=== PATIENT | female | born 1985 | race Two or more races ===

== ENCOUNTER 2016-11-10 10:16 | Emergency (ER) | payer OTHER ==
[~2016-11-10] VITALS: Ht 160 cm; Wt 81.6 kg
--- NOTE | ~2016-11-10 | CR72 ---
[facility] A Service of [facility] RADIOLOGY TEXT RESULTS PATIENT: ARLIN SOLANO LOCATION: SED : 87 UNIT #: [id number] AGE: [address]: Irvin Caraballo MD SEX: F ORDER DR: [id number] [address] [address] [id number] MR#: [id number] Acc #: [id number] NAME: ARLIN SOLANO : 1985 SEX: F STUDY DATE/TIME: 11/10/2016 11:46 UNIT: SED ROOM: STUDY DESCRIPTION: CR Chest Single View Portable Attending Physician: Irvin Caraballo M.D. Ordering Physician: Irvin Caraballo M.D. Primary Care Physician: No Primary Care Physician MEDICAL IMAGING REPORT This report is preliminary unless electronic signature is present. EXAM Portable chest HISTORY Chest pain since 11/08/2016 COMPARISON 03/29/2016 FINDINGS A portable view of the chest was obtained. The heart size and vascularity are normal and the lungs are clear. The bones are unremarkable. IMPRESSION No active disease. Dictated by... Prashant Martin M.D. THIS IS AN ELECTRONICALLY VERIFIED REPORT Prashant Martin M.D. at 11/11/2016 7:40 AM LAURENCE/marcel TD: 11/10/2016 22:00 JOB #: [id number] MEDICAL IMAGING REPORT Page 1 of 1
--- NOTE | ~2016-11-10 | EKG ---
PATIENT: ARLIN SOLANO UNIT #: [id number] Ventricular Rate: 61 BPM Atrial Rate: 61 BPM P-R Interval: 140 ms QRS Duration: 74 ms Q-T Interval: 388 ms QTC Calculation(Bezet): 390 ms P Floral: 17 degrees Calculated R Floral: 40 degrees Calculated T Floral: 33 degrees Diagnosis Line: Normal sinus rhythm with sinus arrhythmia Diagnosis Line: Normal ECG Diagnosis Line: Diagnosis Line: Confirmed by CHANDRAKANT NICHOLS MD ([id number]) on Diagnosis Line: 11/14/2016 7:59:00 AM INTERPRETING MD: SIMONE BERNABE
[~2016-11-10 10:16] MED LIST: ALBUTEROL17 G1 INH; ALBUTEROL17 GM INH; BACTRIM DS TABL1 TAB PO; FLEXERIL PO; FOLIC ACID1 MG PO; MACROBID100 MG PO; NAPROSYN500 MG PO; NO MEDICATIONS; PHENERGAN PO; PHENERGAN12.5 M2 PR; PRENATAL W/FOLI1 TA1 PO; PROMETHAZINE D118 ML PO; PYRIDIUM PO; ROBITUSSIN A-C10 ML PO; VICODIN 5/500 T1 TAB PO; VOLTAREN75 MG PO; ZITHROMAX PO
[2016-11-10] MEDS ORDERED: PRENATAL VITAM1 EAC2 (10:36)
[2016-11-10 11:00] LABS: URINE BILIRUBIN NEG (NEG); URINE BLOOD 3+ (NEG); URINE COLOR YELLOW; URINE GLUCOSE NEG (NORM); URINE KETONE NEG (NEG); URINE LEUKOCYTE ESTERASE NEG (NEG); URINE NITRATE NEG (NEG); URINE PH 5.5 (5-8); URINE PROTEIN TRACE (NEG); URINE SOURCE CLEAN CATCH; URINE SPECIFIC GRAVITY >=1.030 (1.003-1.035); URINE UROBILINOGEN 0.2 MG/DL (NORM)
[2016-11-10 11:01] LABS: MICRO INDICATED? YES; URINE APPEARANCE HAZY
[2016-11-10 11:07] LABS: CULTURE INDICATED? YES; URINE BACTERIA 3+ (NEG)
[2016-11-10 11:08] LABS: URINE MUCUS PRESENT; URINE SQUAMOUS EPITHELIAL CELL MANY /[HPF]
[2016-11-10 11:38] LABS: POC - CKMB <1.0 ng/mL (0.0-7.9)
[2016-11-10 11:39] LABS: POC - MYOGLOBIN 37.6 ng/mL (0.0-169.0); POC - TROPONIN <0.05 ng/mL (<=0.05)
== END 2016-11-10 12:23 | disposition home or self-care (01) ==
LOC: SED 10:16
PROVIDERS: Emergency Medicine
DX: R07.89 Other chest pain (principal); Z91.041 Radiographic dye allergy status
CPT/HCPCS: 71010; 81003; 82553; 83874; 84484; 84703; 87086; 93005; 99285